=== PATIENT | male | born 1970 | race Caucasian/White ===

== ENCOUNTER 2017-06-19 10:00 | Outpatient (RCR) | payer BC | END 2017-06-24 | LOC: M OT 10:00 | PROVIDERS: ATTEND Family Medicine | DX: Z51.89 Encounter for other specified aftercare (principal); M25.532 Pain in left wrist; W54.0XXD Bitten by dog, subsequent encounter; Y92.9 Unspecified place or not applicable; Y93.9 Activity, unspecified; Y99.9 Unspecified external cause status ==

== ENCOUNTER → 2018-03-05 | Outpatient (CLI) | payer OTHER ==
[2018-03-05 13:28] LABS: BASO % 0.7 % (0.0-1.0); EOS # 0.1 10^3/uL (0.0-0.50); EOS % 2.3 % (0.0-3.0); HEMATOCRIT 46.8 % (42.0-52.0); HEMOGLOBIN 16.1 g/dl (13.5-17.5); IMMATURE GRANULOCYTE % 0.2 % (0-3.0); LYMPH # 1.7 10^3/uL (1.5-4.5); LYMPH % 31.2 % (24.0-44.0); MEAN CORPUSCULAR HGB CONC 34.4 g/dl (32.0-36.5); MEAN CORPUSCULAR VOLUME 90.2 fl (80.0-96.0); MONO # 0.6 10^3/uL (0.0-0.8); MONO % 10.6 % (0.0-5.0); NEUTROPHILS # 3.1 10^3/uL (1.8-7.7); PLATELET COUNT, AUTOMATED 113 10^3/uL (150-450); RED BLOOD COUNT 5.19 10^6/uL (4.30-6.10); RED CELL DISTRIBUTION WIDTH 12.7 % (11.5-14.5); WHITE BLOOD COUNT 5.6 10^3/uL (4.0-10.0)
[2018-03-05 13:37] LABS: ALBUMIN 3.8 GM/DL (3.2-5.2); ALBUMIN/GLOBULIN RATIO 1.36 (1.00-1.93); ALKALINE PHOSPHATASE 57 U/L (45-117); ALT/SGPT 32 U/L (12-78); ANION GAP 7 MEQ/L (8-16); AST/SGOT 17 U/L (7-37); BILIRUBIN,TOTAL 0.6 MG/DL (0.2-1.0); BLOOD UREA NITROGEN 19 MG/DL (7-18); CALCIUM LEVEL 8.6 MG/DL (8.5-10.1); CARBON DIOXIDE LEVEL 29 MEQ/L (21-32); CHLORIDE LEVEL 107 MEQ/L (98-107); CHOLESTEROL LEVEL 205 MG/DL (<200); CHOLESTEROL RISK RATIO 4.019 (<5); CREATININE FOR GFR 1.05 MG/DL (0.70-1.30); GLOMERULAR FILTRATION RATE > 60.0 (>60); GLUCOSE, FASTING 102 MG/DL (70-100); HDL CHOLESTEROL 51 MG/DL (>40); LDL CHOLESTEROL 119.2 MG/DL (<100); NON-HDL-C 154 MG/DL; POTASSIUM SERUM 4.5 MEQ/L (3.5-5.1); PROSTATIC SPECIFIC AG MONITOR 0.91 NG/ML (< 4.0); SODIUM LEVEL 143 MEQ/L (136-145); TOTAL PROTEIN 6.6 GM/DL (6.4-8.2); TRIGLYCERIDES LEVEL 174 MG/DL (<150)
== END ==
LOC: M WUC 08:35
DX: M25.561 Pain in right knee (principal); Z12.5 Encounter for screening for malignant neoplasm of prostate; E78.2 Mixed hyperlipidemia; Z79.899 Other long term (current) drug therapy
CPT/HCPCS: 80053

== ENCOUNTER 2018-05-27 09:22 | Day surgery (SDC) | payer OTHER ==
[~2018-05-27 09:22] MED LIST: ACETAMINOPHEN 325 MG TAB PO; CYCLOPENTOLATE 2% OPHTH SOLN 2ML BTL OS; LIDOCAINE 3.5 % 1ML OPHTH TOPICAL GEL OU; MIDAZOLAM INJ 2 MG/2 ML VIAL (J2250) As Ordered; OFLOXACIN 0.3 % (OCUFLOX) OPTH SOL 5ML OS; PHENYLEPHRINE 2.5% OPHTH SOL 2ML OS; PHENYLEPHRINE HCL 10 % OPHTH. SOL 5ML OS; PROPARACAINE 0.5% OPHTH SOL 15ML OS; TROPICAMIDE 1% OPHTH SOLN 2ML OS
[2018-05-27] MEDS ORDERED: fentaNYL 100 MCG/2 ML INJECTION (J3010) As Ordered (12:26)
[2018-05-27] MEDS ORDERED: MIDAZOLAM INJ 2 MG/2 ML VIAL (J2250) As Ordered ×2 (13:07→13:10)
[2018-05-27] MEDS: POVIDONE-IODINE 5% OPHTH PREP SOL 30ML As Ordered ×2 (13:08→13:27)
[2018-05-27] MEDS: TETRACAINE 0.5% OPHTH SOLN 4ML As Ordered (13:09)
[2018-05-27] MEDS: BALANCED SALT IRRIGATION SOLUTION 500ML BAG (FOR OR EYE MACHINE) As Ordered (13:10)
[2018-05-27] MEDS: HEALON DUET (HEALON 10MG/ML 0.55ML & HEALON ENDOCOAT 30MG/ML 0.85ML) As Ordered (13:10)
[2018-05-27] MEDS: LIDOCAINE 1% SDV 5 ML VIAL As Ordered (13:11)
[2018-05-27] MEDS: CEFUROXIME 1MG/0.1ML INTRACAMERAL INJ As Ordered (13:12)
[2018-05-27] MEDS ORDERED: AcetaZOLAMIDE 500 MG ER CAP As Ordered (13:57)
[2018-05-27] MEDS ORDERED: TRIMETHOBENZAMIDE 300 MG CAP PO (14:00)
[2018-05-27] MEDS ORDERED: AcetaZOLAMIDE 500 MG ER CAP PO (14:00)
[2018-05-27] MEDS ORDERED: KETOROLAC 0.5% OPHTH SOLN OS (14:00)
== END 2018-05-27 14:15 | disposition home or self-care (01) ==
LOC: M SDC 09:22
DX: H25.12 Age-related nuclear cataract, left eye (principal); E78.00 Pure hypercholesterolemia, unspecified; M12.9 Arthropathy, unspecified; C69.91 Malignant neoplasm of unspecified site of right eye; Z79.899 Other long term (current) drug therapy; Z92.3 Personal history of irradiation; Z72.0 Tobacco use
CPT/HCPCS: 66984

== ENCOUNTER 2018-07-22 09:08 | Day surgery (SDC) | payer OTHER ==
[~2018-07-22 09:08] MED LIST changes: -ACETAMINOPHEN 325 MG TAB PO; -CYCLOPENTOLATE 2% OPHTH SOLN 2ML BTL OS; -LIDOCAINE 3.5 % 1ML OPHTH TOPICAL GEL OU; -MIDAZOLAM INJ 2 MG/2 ML VIAL (J2250) As Ordered; -OFLOXACIN 0.3 % (OCUFLOX) OPTH SOL 5ML OS; -PHENYLEPHRINE 2.5% OPHTH SOL 2ML OS; +PHENYLEPHRINE HCL 10 % OPHTH. SOL 5ML OD; -PHENYLEPHRINE HCL 10 % OPHTH. SOL 5ML OS; -PROPARACAINE 0.5% OPHTH SOL 15ML OS; -TROPICAMIDE 1% OPHTH SOLN 2ML OS
[2018-07-22] MEDS: OFLOXACIN 0.3 % (OCUFLOX) OPTH SOL 5ML OD (09:31)
[2018-07-22] MEDS: CYCLOPENTOLATE 2% OPHTH SOLN 2ML BTL OD (09:31)
[2018-07-22] MEDS: LIDOCAINE 3.5 % 1ML OPHTH TOPICAL GEL OU (09:31)
[2018-07-22] MEDS: PHENYLEPHRINE 2.5% OPHTH SOL 2ML OD (09:31)
[2018-07-22] MEDS: TROPICAMIDE 1% OPHTH SOLN 2ML OD (09:31)
[2018-07-22] MEDS: POVIDONE-IODINE 5% OPHTH PREP SOL 30ML As Ordered (11:20)
[2018-07-22] MEDS: HEALON DUET PRO(HEALON 10MG/ML 0.55ML & HEALON ENDOCOAT 30MG/ML 0.85ML) As Ordered (11:24)
[2018-07-22] MEDS: LIDOCAINE 1% SDV 5 ML VIAL As Ordered (11:24)
[2018-07-22] MEDS: BALANCED SALT IRRIGATION SOLUTION 500ML BAG (FOR OR EYE MACHINE) As Ordered (11:24)
[2018-07-22] MEDS: CEFUROXIME 1MG/0.1ML INTRACAMERAL INJ As Ordered (11:24)
[2018-07-22] MEDS ORDERED: MIDAZOLAM INJ 2 MG/2 ML VIAL (J2250) As Ordered (11:25)
[2018-07-22] MEDS ORDERED: fentaNYL 100 MCG/2 ML INJECTION (J3010) As Ordered (11:25)
== END 2018-07-22 12:09 | disposition home or self-care (01) ==
LOC: M SDC 09:08
DX: H25.11 Age-related nuclear cataract, right eye (principal); H52.201 Unspecified astigmatism, right eye; E78.5 Hyperlipidemia, unspecified; F17.210 Nicotine dependence, cigarettes, uncomplicated; Z79.899 Other long term (current) drug therapy
CPT/HCPCS: 66984

== ENCOUNTER → 2018-09-21 | Outpatient (REF) | payer OTHER ==
[~2018-09-21] MED LIST changes: +CELE10TA PO; +FISH7.5C PO; +FLOM0.4C39 PO; +LIPI20TA PO; -PHENYLEPHRINE HCL 10 % OPHTH. SOL 5ML OD
[2018-09-21 12:43] LABS: ALBUMIN 3.9 GM/DL (3.2-5.2); ALT/SGPT 44 U/L (12-78); BILIRUBIN,TOTAL 0.4 MG/DL (0.2-1.0); BLOOD UREA NITROGEN 18 MG/DL (7-18); CALCIUM LEVEL 8.5 MG/DL (8.5-10.1); CARBON DIOXIDE LEVEL 27 MEQ/L (21-32); CHLORIDE LEVEL 108 MEQ/L (98-107); CHOLESTEROL LEVEL 188 MG/DL (<200); CREATININE FOR GFR 0.88 MG/DL (0.70-1.30); GLOMERULAR FILTRATION RATE > 60.0 (>60); GLUCOSE, FASTING 118 MG/DL (70-100); HDL CHOLESTEROL 39 MG/DL (>40); LDL CHOLESTEROL 115 MG/DL (<100); NON-HDL-C 149 MG/DL; POTASSIUM SERUM 4.4 MEQ/L (3.5-5.1); SODIUM LEVEL 141 MEQ/L (136-145); TOTAL PROTEIN 6.4 GM/DL (6.4-8.2); TRIGLYCERIDES LEVEL 172 MG/DL (<150)
[2018-09-21 12:44] LABS: BASO % 0.5 % (0.0-1.0); EOS # 0.2 10^3/uL (0.0-0.50); EOS % 2.6 % (0.0-3.0); HEMATOCRIT 48.3 % (42.0-52.0); HEMOGLOBIN 16.3 g/dl (13.5-17.5); LYMPH # 1.5 10^3/uL (1.5-4.5); LYMPH % 25.4 % (24.0-44.0); MEAN CORPUSCULAR HEMOGLOBIN 30.2 pg (27.0-33.0); MEAN CORPUSCULAR HGB CONC 33.7 g/dl (32.0-36.5); MEAN CORPUSCULAR VOLUME 89.6 fl (80.0-96.0); MONO # 0.6 10^3/uL (0.0-0.8); MONO % 9.6 % (0.0-5.0); NEUTROPHILS # 3.6 10^3/uL (1.8-7.7); NEUTROPHILS % 61.6 % (36.0-66.0); PLATELET COUNT, AUTOMATED 131 10^3/uL (150-450); RED BLOOD COUNT 5.39 10^6/uL (4.30-6.10); WHITE BLOOD COUNT 5.9 10^3/uL (4.0-10.0)
[2018-09-21 13:18] LABS: HEMOGLOBIN A1c 5.8 %
== END ==
LOC: M LABDRAW1 11:45
PROVIDERS: ATTEND Nurse Practitioner Family
DX: R73.9 Hyperglycemia, unspecified (principal); E78.2 Mixed hyperlipidemia; Z68.29 Body mass index [BMI] 29.0-29.9, adult; E66.3 Overweight

== ENCOUNTER → 2018-09-29 | Outpatient (CLI) | payer OTHER ==
--- NOTE | 2018-10-02 16:05 | SLEEPHOME ---
DATE OF PROCEDURE: 09/29/2018 ORDERED BY: RICHELLE Vasquez Diagnostic home sleep testing was performed due to concern for the obstructive sleep apnea syndrome in this patient with history of excessive somnolence and nonrestorative sleep. For testing a nocturnal T3 respiratory monitoring device was used. Continuous record was made of pulse, oxygen saturation, airflow, chest, abdominal strain and body position. 9 hours and 59 minutes of data were reviewed. Of these 6 hours and 56 minutes were marked as time in bed. During the interval marked time in bed there were 70 respiratory events identified of 10 seconds in duration or greater for a respiratory event index of 10.1. The events were primarily obstructive. Baseline pulse rate and saturation was unable to be reported as the probe became dislodged early in the study. Testing was performed in both the supine and nonsupine positions. IMPRESSION Abnormal home sleep testing with repetitive respiratory events and respiratory event index of 10.1 is consistent with the obstructive sleep apnea syndrome. RECOMMENDATIONS The patient should be encouraged to undergo formal sleep evaluation and laboratory pressure titration.
== END ==
LOC: M SLEEP HO 10:17
PROVIDERS: ATTEND Nurse Practitioner Family
DX: R40.0 Somnolence (principal)

== ENCOUNTER → 2018-10-27 | Outpatient (CLI) | payer OTHER | LOC: M LAB 11:09 | PROVIDERS: ATTEND Family Medicine | DX: N39.43 Post-void dribbling (principal) ==

== ENCOUNTER → 2019-01-31 | Outpatient (CLI) | payer OTHER ==
--- NOTE | 2019-02-02 00:25 | SLEEPCENT ---
DATE OF PROCEDURE: 01/31/2019 ORDERED BY: RICHELLE Vasquez Nocturnal polysomnography was performed for the titration of pressure therapy in this patient with a clinical diagnosis of obstructive sleep apnea syndrome supported by home testing revealing a respiratory event index of 10.1. For testing a ResMed AirFit F20 full face mask of large size was used, 4 cm of water pressure were applied to the circuit and the lights were extinguished. 7 hours and 50 minutes of data were reviewed. There were 420 minutes of sleep identified. Sleep latency was normal at 10 minutes. Rapid eye movement (REM) latency was normal at 88 minutes. Sleep architecture was fair with four to five REM cycles. Overall sleep efficiency 90.3%. The electrocardiogram showed a sinus rhythm with an average heart rate of 68 beats per minute. EEG showed some artifactual changes but no focal events, normal waveforms were seen for awake and sleep stages. Respiratory events were fully palliated with continuous positive airway pressure (CPAP) at a pressure of +9. There was some scattered limb activity but remaining measures of sleep physiology were normal. IMPRESSION: Obstructive sleep apnea syndrome (G47.33). RECOMMENDATIONS: Nightly use of pressure therapy 9 cm of water.
== END ==
LOC: M SLEEP 20:00
PROVIDERS: ATTEND Nurse Practitioner Family
DX: G47.33 Obstructive sleep apnea (adult) (pediatric) (principal)

== ENCOUNTER → 2019-07-11 | Outpatient (CLI) | payer OTHER, SELFPAY ==
[2019-07-11 17:46] LABS: BASO % 0.5 % (0.0-1.0); EOS # 0.1 10^3/uL (0.0-0.5); EOS % 2.1 % (0.0-3.0); HEMATOCRIT 50.1 % (42.0-52.0); HEMOGLOBIN 16.2 g/dl (13.5-17.5); LYMPH # 1.8 10^3/uL (1.5-5.0); LYMPH % 30.2 % (24.0-44.0); MEAN CORPUSCULAR HEMOGLOBIN 31.2 pg (27.0-33.0); MEAN CORPUSCULAR HGB CONC 32.3 g/dl (32.0-36.5); MEAN CORPUSCULAR VOLUME 96.3 fl (80.0-96.0); MONO # 0.5 10^3/uL (0.0-0.8); MONO % 9.3 % (0.0-5.0); NEUTROPHILS # 3.4 10^3/uL (1.5-8.5); NEUTROPHILS % 57.4 % (36.0-66.0); PLATELET COUNT, AUTOMATED 112 10^3/uL (150-450); WHITE BLOOD COUNT 5.8 10^3/uL (4.0-10.0)
[2019-07-11 17:50] LABS: ALBUMIN 3.7 GM/DL (3.2-5.2); ALT/SGPT 46 U/L (12-78); BILIRUBIN,TOTAL 0.5 MG/DL (0.2-1.0); BLOOD UREA NITROGEN 19 MG/DL (7-18); CALCIUM LEVEL 8.1 MG/DL (8.5-10.1); CARBON DIOXIDE LEVEL 28 MEQ/L (21-32); CHLORIDE LEVEL 110 MEQ/L (98-107); CHOLESTEROL LEVEL 169 MG/DL (<200); CHOLESTEROL RISK RATIO 4.567 (<5); CREATININE FOR GFR 1.04 MG/DL (0.70-1.30); GLOMERULAR FILTRATION RATE > 60.0 (>56); GLUCOSE, FASTING 99 MG/DL (70-100); HDL CHOLESTEROL 37 MG/DL (>40); LDL CHOLESTEROL 99 MG/DL (<100); NON-HDL-C 132 MG/DL; POTASSIUM SERUM 4.2 MEQ/L (3.5-5.1); SODIUM LEVEL 144 MEQ/L (136-145); TOTAL PROTEIN 6.3 GM/DL (6.4-8.2); TRIGLYCERIDES LEVEL 167 MG/DL (<150)
[2019-07-11 19:02] LABS: HEMOGLOBIN A1c 5.3 %
[2019-07-13 14:07] LABS: PSA TOTAL 1.4 ng/mL (0.0-4.0)
== END ==
LOC: M WUC 08:04
PROVIDERS: ATTEND Family Medicine
DX: E78.2 Mixed hyperlipidemia (principal); N40.0 Benign prostatic hyperplasia without lower urinary tract symptoms; R73.03 Prediabetes

== ENCOUNTER → 2019-11-10 | Outpatient (CLI) | payer BC ==
[2019-11-10 09:56] LABS: BASO % 0.7 % (0.0-1.0); EOS # 0.1 10^3/uL (0.0-0.5); EOS % 2.6 % (0.0-3.0); HEMATOCRIT 44.9 % (42.0-52.0); HEMOGLOBIN 15.5 g/dl (13.5-17.5); LYMPH # 1.6 10^3/uL (1.5-5.0); LYMPH % 28.9 % (24.0-44.0); MEAN CORPUSCULAR HEMOGLOBIN 30.9 pg (27.0-33.0); MEAN CORPUSCULAR HGB CONC 34.5 g/dl (32.0-36.5); MEAN CORPUSCULAR VOLUME 89.6 fl (80.0-96.0); MONO # 0.6 10^3/uL (0.0-0.8); MONO % 11.2 % (0.0-5.0); NEUTROPHILS # 3.1 10^3/uL (1.5-8.5); NEUTROPHILS % 56.2 % (36.0-66.0); PLATELET COUNT, AUTOMATED 115 10^3/uL (150-450); RED BLOOD COUNT 5.01 10^6/uL (4.30-6.10); WHITE BLOOD COUNT 5.5 10^3/uL (4.0-10.0)
[2019-11-10 09:58] LABS: ALBUMIN 3.9 GM/DL (3.2-5.2); ALT/SGPT 37 U/L (12-78); BILIRUBIN,TOTAL 0.8 MG/DL (0.2-1.0); BLOOD UREA NITROGEN 19 MG/DL (7-18); CALCIUM LEVEL 8.7 MG/DL (8.5-10.1); CARBON DIOXIDE LEVEL 27 MEQ/L (21-32); CHLORIDE LEVEL 110 MEQ/L (98-107); CHOLESTEROL LEVEL 147 MG/DL (<200); CREATININE FOR GFR 0.98 MG/DL (0.70-1.30); GLOMERULAR FILTRATION RATE > 60.0 (>56); GLUCOSE, FASTING 102 MG/DL (70-100); HDL CHOLESTEROL 44 MG/DL (>40); LDL CHOLESTEROL 74 MG/DL (<100); NON-HDL-C 103 MG/DL; POTASSIUM SERUM 4.2 MEQ/L (3.5-5.1); SODIUM LEVEL 143 MEQ/L (136-145); TOTAL PROTEIN 6.5 GM/DL (6.4-8.2); TRIGLYCERIDES LEVEL 144 MG/DL (<150)
[2019-11-12 00:06] LABS: TESTOSTERONE FREE (DIRECT) 11.9 pg/mL (7.2-24.0)
== END ==
LOC: M WUC 08:04
PROVIDERS: ATTEND Family Medicine
DX: K92.1 Melena (principal); E78.2 Mixed hyperlipidemia; N50.0 Atrophy of testis

== ENCOUNTER → 2020-05-04 | Outpatient (CLI) | payer BC ==
--- NOTE | 2020-05-11 17:14 | SLEEPHOME ---
DATE: 05/04/2020 ORDERED BY: Kasey Ansari Diagnostic home sleep testing was performed due to concern for persistent obstructive sleep apnea syndrome in this patient with a prior history of same. For testing, a nocturnal T3 respiratory monitoring device was used. Continuous record was made of pulse, oxygen saturation, air flow, chest and abdominal strain, and body position. Nine hours and 59 minutes of data were reviewed. There was 8 hours and 9 minutes marked as time in bed. During the interval marked time in bed, there were 236 respiratory events identified of 10 seconds in duration or greater for a respiratory event index of 28.9. The events were primarily obstructive, 14 mixed and central apneas were seen. Baseline pulse rate 63 beats per minute. Pulse rate ranged 48 to 107. Baseline saturation was 93%. Saturations fell to 80%. Testing was performed in both the supine and non-supine positions. IMPRESSION: Abnormal home sleep testing with repetitive respiratory events and oxygen desaturation to 80% with a respiratory event index of 28.9 is consistent with the obstructive sleep apnea syndrome. RECOMMENDATION: The patient should be encouraged formal sleep evaluation. [facility]
== END ==
LOC: M SLEEP HO 11:34
PROVIDERS: ATTEND Nurse Practitioner Family
DX: G47.33 Obstructive sleep apnea (adult) (pediatric) (principal)

== ENCOUNTER → 2020-06-16 | Outpatient (CLI) | payer BC ==
--- NOTE | 2020-06-21 08:46 | SLEEPCENT ---
DATE: 06/16/2020 ORDERED BY: Kasey Ansari Nocturnal polysomnography was performed for the titration of pressure therapy in this patient with clinical diagnosis of obstructive sleep apnea syndrome confirmed by home testing revealing respiratory event index of 28.9. For testing, a ResMed Mirage FX nasal mask was used, standard size, 4 cm of water pressure were applied to the circuit and the lights were extinguished. 7 hours and 40 minutes of data were reviewed. There were 370 minutes of sleep identified. Sleep latency was normal at 11 minutes. REM latency was normal at 85 minutes. Sleep architecture was good with 4 REM cycles. Overall sleep efficiency was 82%. The electrocardiogram showed a sinus rhythm with an average heart rate of 62 beats per minute. Electroencephalogram showed reasonably normal waveforms for awake and sleep. Respiratory events were fully palliated with CPAP at a pressure of +10. Remaining measures of sleep physiology were normal. IMPRESSION: Obstructive sleep apnea syndrome (G47.33) RECOMMENDATION: Night use of pressure therapy 10 cm of water. [facility]
== END ==
LOC: M SLEEP 20:00
PROVIDERS: ATTEND Nurse Practitioner Family
DX: G47.33 Obstructive sleep apnea (adult) (pediatric) (principal)

== ENCOUNTER → 2020-07-21 | Outpatient (REF) | payer BC ==
[2020-07-21 17:57] LABS: BASO % 0.4 % (0.0-1.0); EOS # 0.2 10^3/uL (0.0-0.5); EOS % 2.1 % (0.0-3.0); HEMOGLOBIN 16.3 g/dl (13.5-17.5); LYMPH # 1.8 10^3/uL (1.5-5.0); LYMPH % 23.4 % (24.0-44.0); MEAN CORPUSCULAR HEMOGLOBIN 31.2 pg (27.0-33.0); MEAN CORPUSCULAR HGB CONC 32.6 g/dl (32.0-36.5); MEAN CORPUSCULAR VOLUME 95.6 fl (80.0-96.0); MONO # 0.6 10^3/uL (0.0-0.8); MONO % 8.2 % (0.0-5.0); NEUTROPHILS % 65.4 % (36.0-66.0); PLATELET COUNT, AUTOMATED 115 10^3/uL (150-450); RED BLOOD COUNT 5.23 10^6/uL (4.30-6.10); WHITE BLOOD COUNT 7.7 10^3/uL (4.0-10.0)
[2020-07-21 18:15] LABS: HEMOGLOBIN A1c 5.4 %
[2020-07-21 18:18] LABS: ALBUMIN 3.8 GM/DL (3.2-5.2); ALT/SGPT 41 U/L (12-78); BILIRUBIN,TOTAL 0.5 MG/DL (0.2-1.0); BLOOD UREA NITROGEN 22 MG/DL (7-18); CALCIUM LEVEL 8.4 MG/DL (8.5-10.1); CARBON DIOXIDE LEVEL 24 MEQ/L (21-32); CHLORIDE LEVEL 110 MEQ/L (98-107); CHOLESTEROL LEVEL 231 MG/DL (<200); CREATININE FOR GFR 0.99 MG/DL (0.70-1.30); GLOMERULAR FILTRATION RATE > 60.0 (>56); GLUCOSE, FASTING 69 MG/DL (70-100); HDL CHOLESTEROL 42 MG/DL (>40); LDL CHOLESTEROL 154 MG/DL (<100); NON-HDL-C 189 MG/DL; POTASSIUM SERUM 3.7 MEQ/L (3.5-5.1); SODIUM LEVEL 143 MEQ/L (136-145); TOTAL PROTEIN 6.1 GM/DL (6.4-8.2); TRIGLYCERIDES LEVEL 173 MG/DL (<150)
[2020-07-24 16:07] LABS: TESTOSTERONE FREE (DIRECT) 15.8 pg/mL (7.2-24.0)
== END ==
LOC: M LAB REF 08:30
PROVIDERS: ATTEND Family Medicine
DX: K92.1 Melena (principal); N50.0 Atrophy of testis; E78.2 Mixed hyperlipidemia; R73.01 Impaired fasting glucose

== ENCOUNTER → 2021-05-04 | Outpatient (CLI) | payer BC | LOC: M LABSMTC 10:13 | PROVIDERS: ATTEND Student in an Organized Health Care Education/Training Program | DX: Z01.812 Encounter for preprocedural laboratory examination (principal); Z20.822 Contact with and (suspected) exposure to COVID-19 ==

== ENCOUNTER → 2021-07-05 | Outpatient (CLI) | payer BC | LOC: M LABSMTC 10:23 | PROVIDERS: ATTEND Specialist | DX: Z01.812 Encounter for preprocedural laboratory examination (principal); Z20.822 Contact with and (suspected) exposure to COVID-19 ==

== ENCOUNTER → 2021-10-15 | Outpatient (CLI) | payer BC | LOC: M RAD 14:08 | PROVIDERS: ATTEND Orthopaedic Surgery | DX: M79.605 Pain in left leg (principal); Z47.1 Aftercare following joint replacement surgery ==

== ENCOUNTER → 2024-04-29 | Outpatient (CLI) | payer OTHER ==
[~2024-04-29] MED LIST changes: +FISH10005 PO; -FISH7.5C PO
== END ==
LOC: M SLEEP 20:00
PROVIDERS: ATTEND Internal Medicine Critical Care Medicine
DX: G47.33 Obstructive sleep apnea (adult) (pediatric) (principal); G47.61 Periodic limb movement disorder

== ENCOUNTER → 2024-05-13 | Outpatient (CLI) | payer OTHER | LOC: M RAD 16:25 | PROVIDERS: ATTEND Internal Medicine Critical Care Medicine | DX: Z12.2 Encounter for screening for malignant neoplasm of respiratory organs (principal); F17.218 Nicotine dependence, cigarettes, with other nicotine-induced disorders; J47.9 Bronchiectasis, uncomplicated; I25.10 Atherosclerotic heart disease of native coronary artery without angina pectoris ==

== ENCOUNTER → 2024-10-01 | Outpatient (CLI) | payer OTHER | LOC: M SLEEP 20:00 | PROVIDERS: ATTEND Internal Medicine Critical Care Medicine | DX: G47.33 Obstructive sleep apnea (adult) (pediatric) (principal) ==

== ENCOUNTER → 2024-11-02 | Outpatient (CLI) | payer OTHER ==
[2024-11-02 19:42] LABS: HEMATOCRIT 42.3 % (42.0-52.0); HEMOGLOBIN 13.9 g/dl (13.5-17.5); MEAN CORPUSCULAR HEMOGLOBIN 29.6 pg (27.0-33.0); MEAN CORPUSCULAR HGB CONC 32.9 g/dl (32.0-36.5); MEAN CORPUSCULAR VOLUME 90.2 fl (80.0-96.0); PLATELET COUNT, AUTOMATED 159 10^3/uL (150-450); RED BLOOD COUNT 4.69 10^6/uL (4.30-6.10)
[2024-11-02 20:19] LABS: ALBUMIN 3.8 G/DL (3.2-5.2); ALKALINE PHOSPHATASE 48 U/L (40-129); ALT/SGPT 21 U/L (7.0-40); AST/SGOT 21 U/L (<34); BILIRUBIN,TOTAL 0.5 MG/DL (0.3-1.2); BLOOD UREA NITROGEN 16 MG/DL (9-23); CALCIUM LEVEL 8.4 MG/DL (8.5-10.1); CARBON DIOXIDE LEVEL 28 MMOL/L (20-31); CHLORIDE LEVEL 105 MMOL/L (98-107); CREATININE FOR GFR 1.02 MG/DL (0.70-1.30); GLOMERULAR FILTRATION RATE > 60.0 (>56); GLUCOSE, FASTING 73 MG/DL (60-100); SODIUM LEVEL 140 MMOL/L (136-145); TOTAL PROTEIN 6.4 G/DL (5.7-8.2)
[2024-11-02 20:52] LABS: HIV 1&2 SCREEN NEGATIVE (NEGATIVE)
[2024-11-02 20:59] LABS: HEPATITIS C VIRUS ABY INDEX 0.04 INDEX (<0.8)
== END ==
LOC: M LAB 15:56
PROVIDERS: ATTEND Family Medicine
DX: Z51.81 Encounter for therapeutic drug level monitoring (principal); F11.20 Opioid dependence, uncomplicated

== ENCOUNTER → 2024-11-03 | Outpatient (REF) | payer OTHER ==
[2024-11-03 13:41] LABS: GC DNA AMPLIFICATION NEGATIVE (NEGATIVE)
== END ==
LOC: M LAB REF 10:35
PROVIDERS: ATTEND Family Medicine
DX: F11.20 Opioid dependence, uncomplicated (principal)

== ENCOUNTER → 2025-06-16 | Outpatient (CLI) | payer OTHER ==
[~2025-06-16] MED LIST changes: -FLOM0.4C39 PO; +TAMS-18 PO
== END ==
LOC: M RAD 16:56
PROVIDERS: ATTEND Internal Medicine Critical Care Medicine
DX: Z12.2 Encounter for screening for malignant neoplasm of respiratory organs (principal); F17.218 Nicotine dependence, cigarettes, with other nicotine-induced disorders